=== PATIENT | female | born 1950 ===

== ENCOUNTER 2020-11-27 17:30 | Outpatient (CLI) | payer MEDICARE, OTHER | END 2020-11-27 17:31 | disposition home or self-care (01) | LOC: SLEEPLAB 17:30 | PROVIDERS: ATTEND Dentist General Practice | DX: G47.33 Obstructive sleep apnea (adult) (pediatric) (principal); R06.83 Snoring; G47.63 Sleep related bruxism | CPT/HCPCS: 95806 ==